=== PATIENT | male | born 1965 | race Caucasian/White ===

== ENCOUNTER 2023-12-22 08:13 | Inpatient (IN) | payer MEDICAID, OTHER ==
[2023-12-22] VITALS (7 sets, daily range): BP systolic 118; BP diastolic 76; PULSE 82–102; RESP 13–26; TEMP 98.2; O2SAT 92–97
[~2023-12-22] VITALS: Ht 188 cm; Wt 201.0 kg
[2023-12-22 09:08] LABS: Basophils # (auto) 0 10 ^3/uL (0-0.2); Basophils % (auto) 0.7 % (0.0-2.0); Eosinophils # (auto) 0.2 10 ^3/uL (0-0.8); Hematocrit 46.4 % (41.0-53.0); Hemoglobin 16.1 g/dL (13.5-17.5); Lymphocytes # (auto) 1.3 10 ^3/uL (0.4-5.4); Lymphocytes % (auto) 29.3 % (10.0-50.0); Mean Corpuscular Hemoglobin 33.8 pg (28.0-32.0); Mean Corpuscular Hgb Conc. 34.7 g/dL (32.0-36.0); Mean Corpuscular Volume 97.3 fL (80.0-100.0); Monocytes # (auto) 0.4 10 ^3/uL (0-1.3); Monocytes % (auto) 8.8 % (0.0-12.0); Neutrophils # (auto) 2.6 10 ^3/uL (1.6-8.6); Neutrophils % (auto) 56.2 % (37.0-80.0); Nucleated Red Blood Cells % 0.1 %; Red Blood Cells 4.77 10^6/uL (4.5-5.90); Red Cell Distribution Width 13.5 % (11.8-14.3); White Blood Cell 4.6 10^3/uL (4.4-10.8)
[2023-12-22] MEDS: ALBUTEROL SULF 2.5 MG/0.5ML(0.5%) NEB SOLN NEB ONE (09:22)
[2023-12-22] MEDS: IPRATROPIUM BROM 0.5 MG/2.5ML INH SOL NEB ONE (09:22)
[2023-12-22 09:33] LABS: Alanine Aminotransferase 80 U/L (7-40); Albumin 4.6 g/dL (3.2-4.8); Alkaline Phosphatase 74 U/L (46-116); Anion Gap 2 (5-15); Aspartate Aminotransferase 75 U/L (13-40); BUN/Creatinine Ratio 11.9 (10.0-20.0); Bilirubin, Total 1.9 mg/dL (0.2-1.0); Blood Urea Nitrogen 15 mg/dL (9-23); Calcium 10.1 mg/dL (8.5-10.1); Carbon Dioxide 35 mmol/L (20-30); Chloride 98 mmol/L (98-107); Glucose 318 mg/dL (74-106); Sodium 135 mmol/L (136-145)
[2023-12-22 09:34] LABS: Total Protein 7.3 g/dL (5.7-8.2)
[2023-12-22] MEDS: SODIUM CHLORIDE 0.9% 1,000 ML IV ONE (09:40)
[2023-12-22] MEDS: ASPirin 81 mg TAB PO ONE (09:40)
[2023-12-22 10:18] LABS: INR 1.08 (0.9-1.15); Partial Thromboplastin Time 25.6 SEC (24.5-34.5); Prothrombin Time 11.4 sec (9.3-11.8)
[2023-12-22] MEDS: LEVOTHYROXINE SODIUM 88 MCG TAB PO ONE (12:46)
[2023-12-22] MEDS: IOHEXOL 350 MG/ML 100ML IJ ONE (12:46)
[2023-12-22] MEDS ORDERED: LOSA-535 PO (12:48)
[2023-12-22] MEDS ORDERED: CLON0.2D6 PO (12:49)
[2023-12-22 12:50] LABS: Urine Bacteria FEW /hpf (None Seen); Urine Blood Negative /uL (Negative); Urine Clarity Turbid (Clear); Urine Color Yellow (Yellow); Urine Hyaline Cast FEW /lpf (0 - 2); Urine Mucus FEW (None Seen); Urine Protein, UAD 1+ (Negative); Urine Specific Gravity 1.021 (1.001-1.035); Urine Sperm PRESENT /hpf (None Seen); Urine Urobilinogen 4 mg/dL (Negative); Urine WBC 12 /hpf (0 - 3)
[2023-12-22] MEDS ORDERED: HYDR25TA5 PO (12:51)
[2023-12-22] MEDS ORDERED: PANT1INJ3 IV (12:51)
[2023-12-22] MEDS ORDERED: METF-370 PO (12:51)
[2023-12-22] MEDS ORDERED: ASPI1TAB20 PO (12:54)
[2023-12-22] MEDS ORDERED: COEN100C15 PO (12:54)
[2023-12-22] MEDS ORDERED: OMEG100062 PO (12:54)
[2023-12-22] MEDS ORDERED: ALBU2TAB11 PO (12:54)
[2023-12-22] MEDS ORDERED: NAP500T PO (12:58)
[2023-12-22] MEDS: MAGNESIUM SULFATE 1GM/100ML 100 ML IV SCH (13:06)
[2023-12-22] MEDS ORDERED: DOCUSATE SOD 100 MG CAP PO PRN (15:00)
[2023-12-22] MEDS ORDERED: ALBUTEROL SULF 2.5 MG/0.5ML(0.5%) NEB SOLN NEB PRN (15:00)
[2023-12-22] MEDS ORDERED: DEXTROSE (50%) 50ML SYRG IV PRN ×4 (15:00→23:45)
[2023-12-22] MEDS ORDERED: IPRATROPIUM BROM 0.5 MG/2.5ML INH SOL NEB PRN (15:00)
[2023-12-22] MEDS: SODIUM CHLORIDE 0.9% 1,000 ML IV SCH (15:00)
[2023-12-22 15:24] LABS: Base Excess 0.4 mmol/L (-2.0-2.0)
[2023-12-22] MEDS: PANTOPRAZOLE 40 MG/10 ML VIAL INJ IV ONE (15:41)
[2023-12-22 15:43] LABS: Free T3 3.74 pg/mL (2.3-4.2)
[2023-12-22 15:44] LABS: Free T4 (Free Thyroxine) 1.2 ng/dL (0.89-1.76)
[2023-12-22] MEDS ORDERED: NITROGLYCERIN 0.4 MG SL TAB SL PRN (17:00)
[2023-12-22] MEDS ORDERED: MORPHINE SULFATE INJ 2 MG/ml SYRG IV PRN (17:00)
[2023-12-22] MEDS: ACCU-CHEK COMFORT CURVE STRIP VI SCH ×2 (17:04→23:47)
[2023-12-22] MEDS: InsuLIN REG 1unit/0.01ml Soln (100units/ml) SC SCH ×3 (17:08→23:48)
[2023-12-22] MEDS: ONDANSETRON HCL 4 MG/2 ML VIAL IV PRN (20:40)
[2023-12-22] MEDS: MORPHINE SULFATE INJ 2 MG/ml SYRG IV PRN (20:40)
[2023-12-22] MEDS: methylPREDNISolone SOD SUCC 125 MG/2 ML VL IV SCH (21:46)
[2023-12-22] MEDS: cloNIDine 0.2 mg/24hr 7DAY PATCH TD SCH (22:10)
[2023-12-22] MEDS: TEMAZEPAM 15 MG CAP PO ONE (23:23)
[2023-12-23] VITALS (15 sets, daily range): BP systolic 115–151; BP diastolic 72–113; PULSE 70–125; RESP 16–39; TEMP 97.7–98.3; O2SAT 88–100
[2023-12-23] MEDS ORDERED: ACCU-CHEK COMFORT CURVE STRIP VI SCH ×2
[2023-12-23] MEDS ORDERED: DEXTROSE (50%) 50ML SYRG IV PRN ×2 (04:45→18:30)
[2023-12-23 06:46] LABS: Alanine Aminotransferase 90 U/L (7-40); Albumin 4.3 g/dL (3.2-4.8); Alkaline Phosphatase 71 U/L (46-116); Anion Gap 8 (5-15); Aspartate Aminotransferase 110 U/L (13-40); BUN/Creatinine Ratio 17.6 (10.0-20.0); Blood Urea Nitrogen 24 mg/dL (9-23); Calcium 9.6 mg/dL (8.5-10.1); Carbon Dioxide 28 mmol/L (20-30); Chloride 99 mmol/L (98-107); Magnesium 1.6 mg/dL (1.6-2.6); Potassium 5.4 mmol/L (3.5-5.1); Sodium 135 mmol/L (136-145)
[2023-12-23 06:47] LABS: Bilirubin, Total 1.5 mg/dL (0.2-1.0); Total Protein 6.7 g/dL (5.7-8.2)
[2023-12-23 06:53] LABS: Basophils # (auto) 0 10 ^3/uL (0-0.2); Eosinophils # (auto) 0 10 ^3/uL (0-0.8); Hemoglobin 15.7 g/dL (13.5-17.5); Lymphocytes # (auto) 0.6 10 ^3/uL (0.4-5.4); Monocytes # (auto) 0.1 10 ^3/uL (0-1.3); Red Cell Distribution Width 13.9 % (11.8-14.3)
[2023-12-23 06:56] LABS: Glucose 428 mg/dL (74-106)
[2023-12-23 06:57] LABS: Basophils % (auto) 0.5 % (0.0-2.0); Eosinophils % (auto) 0.3 % (0.0-7.0); Hematocrit 44.7 % (41.0-53.0); Lymphocytes % (auto) 13.5 % (10.0-50.0); Mean Corpuscular Hemoglobin 35.1 pg (28.0-32.0); Mean Corpuscular Hgb Conc. 35.2 g/dL (32.0-36.0); Mean Corpuscular Volume 99.7 fL (80.0-100.0); Monocytes % (auto) 1.5 % (0.0-12.0); Neutrophils # (auto) 3.6 10 ^3/uL (1.6-8.6); Neutrophils % (auto) 84.2 % (37.0-80.0); Nucleated Red Blood Cells % 0.4 %; Red Blood Cells 4.48 10^6/uL (4.5-5.90); White Blood Cell 4.2 10^3/uL (4.4-10.8)
[2023-12-23] MEDS: InsuLIN REG 1unit/0.01ml Soln (100units/ml) SC SCH (08:42)
[2023-12-23] MEDS: ACCU-CHEK COMFORT CURVE STRIP VI SCH ×2 (08:42→20:11)
[2023-12-23] MEDS: PANTOPRAZOLE 40 MG/10 ML VIAL INJ IV SCH (09:47)
[2023-12-23] MEDS: ASPirin-EC 81 mg tab PO SCH (09:48)
[2023-12-23] MEDS: hydroCHLOROthiazide 25 MG TAB PO SCH (09:49)
[2023-12-23] MEDS: LOSARTAN POTASSIUM 50 MG TAB PO SCH (09:49)
[2023-12-23] MEDS ORDERED: PATIENTS OWN MEDICATION (Losartan Potassium 1 TAB) PO SCH (10:00)
[2023-12-23] MEDS ORDERED: CLON-818 PO (10:22)
[2023-12-23] MEDS: ALBUTEROL SULF 2.5 MG/0.5ML(0.5%) NEB SOLN NEB ONE (10:53)
[2023-12-23 11:08] LABS: Triglycerides 154 mg/dL (< 150)
[2023-12-23 11:09] LABS: LDL Cholesterol 121 mg/dL (< 100)
[2023-12-23 11:10] LABS: HDL Cholesterol 41 mg/dL (40-59)
[2023-12-23 11:11] LABS: Cholesterol 180 mg/dL (< 200)
[2023-12-23] MEDS: KETOROLAC TROMETH 30 MG/ML 1ML VIAL IV ONE (12:25)
[2023-12-23] MEDS: MAGNESIUM SULFATE 1GM/100ML 100 ML IV ONE (12:26)
[2023-12-23] MEDS: FUROSEMIDE 20 MG/2 ML VIAL IV ONE (12:26)
[2023-12-23] MEDS: ACETAMINOPHEN 325 MG TAB PO PRN (12:27)
[2023-12-23] MEDS: INSULIN LANTUS (GLARGINE) 1 /0.01ml (100units/ml) SC SCH (12:44)
[2023-12-23 13:42] LABS: Rapid Influenza A Negative (Negative); Rapid Influenza B Negative (Negative)
[2023-12-23 13:43] LABS: COVID19 ANTIGEN SOFIA FIA NEGATIVE (NEGATIVE)
[2023-12-23] MEDS: InsuLIN REG 1unit/0.01ml Soln (100units/ml) SC ONE (14:13)
[2023-12-23 17:29] LABS: Base Excess 0.5 mmol/L (-2.0-2.0)
[2023-12-23] MEDS: FUROSEMIDE 40 MG/4 ML VIAL IV SCH (17:45)
[2023-12-23] MEDS: INSULIN DRIP 100 UNIT/100ML 100 ML IV SCH (20:20)
[2023-12-23 21:04] LABS: Chloride 99 mmol/L (98-107); Sodium 133 mmol/L (136-145)
[2023-12-23 21:05] LABS: Anion Gap 8 (5-15); Calcium 9.7 mg/dL (8.5-10.1); Carbon Dioxide 26 mmol/L (20-30)
[2023-12-23 21:10] LABS: BUN/Creatinine Ratio 14.9 (10.0-20.0); Blood Urea Nitrogen 22 mg/dL (9-23)
[2023-12-23 21:14] LABS: Glucose 478 mg/dL (74-106)
[2023-12-24] VITALS (12 sets, daily range): BP systolic 123–149; BP diastolic 62–96; PULSE 76–100; RESP 15–23; TEMP 36.5; O2SAT 91–98
[2023-12-24] MEDS ORDERED: DEXTROSE (50%) 50ML SYRG IV PRN (00:15)
[2023-12-24] MEDS: ACCU-CHEK COMFORT CURVE STRIP VI SCH (04:14)
[2023-12-24] MEDS: InsuLIN REG 1unit/0.01ml Soln (100units/ml) SC SCH (04:18)
[2023-12-24 07:24] LABS: Basophils # (auto) 0 10 ^3/uL (0-0.2); Eosinophils # (auto) 0 10 ^3/uL (0-0.8); Lymphocytes # (auto) 1.3 10 ^3/uL (0.4-5.4); Mean Corpuscular Hemoglobin 34.1 pg (28.0-32.0); Monocytes # (auto) 0.4 10 ^3/uL (0-1.3)
[2023-12-24 07:28] LABS: Basophils % (auto) 0.4 % (0.0-2.0); Eosinophils % (auto) 0.6 % (0.0-7.0); Hematocrit 43.3 % (41.0-53.0); Hemoglobin 15.2 g/dL (13.5-17.5); Lymphocytes % (auto) 22.4 % (10.0-50.0); Mean Corpuscular Hgb Conc. 35.1 g/dL (32.0-36.0); Monocytes % (auto) 6.5 % (0.0-12.0); Neutrophils # (auto) 4.1 10 ^3/uL (1.6-8.6); Neutrophils % (auto) 70.1 % (37.0-80.0); Nucleated Red Blood Cells % 0.1 %; Red Blood Cells 4.47 10^6/uL (4.5-5.90); Red Cell Distribution Width 13.5 % (11.8-14.3); White Blood Cell 5.9 10^3/uL (4.4-10.8)
[2023-12-24 07:32] LABS: Alanine Aminotransferase 80 U/L (7-40); Alkaline Phosphatase 64 U/L (46-116); Anion Gap 8 (5-15); BUN/Creatinine Ratio 16.7 (10.0-20.0); Blood Urea Nitrogen 20 mg/dL (9-23); Calcium 9.5 mg/dL (8.5-10.1); Carbon Dioxide 29 mmol/L (20-30); Chloride 100 mmol/L (98-107); Magnesium 1.5 mg/dL (1.6-2.6); Potassium 3.5 mmol/L (3.5-5.1); Sodium 137 mmol/L (136-145)
[2023-12-24 07:33] LABS: Albumin 4.3 g/dL (3.2-4.8); Aspartate Aminotransferase 90 U/L (13-40); Bilirubin, Total 1.4 mg/dL (0.2-1.0); Glucose 281 mg/dL (74-106); Total Protein 6.8 g/dL (5.7-8.2)
[2023-12-24 08:33] LABS: Base Excess 3.3 mmol/L (-2.0-2.0)
[2023-12-24] MEDS: ENOXAPARIN SOD 40 MG/0.4 ML SYRINGE SC SCH (10:00)
[2023-12-24] MEDS: INSULIN LANTUS (GLARGINE) 1 /0.01ml (100units/ml) SC SCH (10:15)
[2023-12-24] MEDS: methylPREDNISolone SOD SUCC 40 MG/ML VL IV SCH (11:03)
[2023-12-24] MEDS: POTASSIUM EFFERVESENT TAB 25 MEQ PO ONE (11:05)
[2023-12-24] MEDS: MAGNESIUM SULFATE 1GM/100ML 100 ML IV ONE (11:07)
[2023-12-24] MEDS ORDERED: PRED20TA2 PO (12:19)
[2023-12-24] MEDS ORDERED: INSLANTI SC (12:19)
[2023-12-24] MEDS ORDERED: BLOO1KIT60 XX (12:21)
[2023-12-24] MEDS ORDERED: METF-370 PO (13:58)
[2023-12-24] MEDS ORDERED: INSU1INJ26 SC (13:58)
[2023-12-25] MEDS ORDERED: MAGNESIUM OXIDE 400 MG TAB PO SCH (10:00)
[2023-12-25] MEDS ORDERED: POTASSIUM CHL 20 Meq TABLET PO SCH (10:00)
== END 2023-12-24 16:01 | disposition home or self-care (01) | DRG 140 ==
LOC: ER 08:13 → TELE 16:53 → TELE-CENTR 16:53 → DOU IN ICU 12-23 17:11
PROVIDERS: ADMIT Internal Medicine Pulmonary Disease; ATTEND Emergency Medicine
DX: J44.1 Chronic obstructive pulmonary disease with (acute) exacerbation (principal); J96.01 Acute respiratory failure with hypoxia; I50.31 Acute diastolic (congestive) heart failure; J45.901 Unspecified asthma with (acute) exacerbation; D69.6 Thrombocytopenia, unspecified; E66.2 Morbid (severe) obesity with alveolar hypoventilation; Z68.43 Body mass index [BMI] 50.0-59.9, adult; I11.0 Hypertensive heart disease with heart failure; E03.9 Hypothyroidism, unspecified; E83.42 Hypomagnesemia; E11.65 Type 2 diabetes mellitus with hyperglycemia; Z20.822 Contact with and (suspected) exposure to COVID-19; R74.01 Elevation of levels of liver transaminase levels; K21.9 Gastro-esophageal reflux disease without esophagitis; E78.5 Hyperlipidemia, unspecified; Z90.49 Acquired absence of other specified parts of digestive tract; Z87.891 Personal history of nicotine dependence; Z56.0 Unemployment, unspecified; Z86.16 Personal history of COVID-19; Z79.84 Long term (current) use of oral hypoglycemic drugs
CPT/HCPCS: 36415; 36600; 71045; 71275; 80048; 80053; 80061; 81001; 82010; 82805; 82962; 83036; 83735; 83880; 84100; 84132; 84439; 84443; 84481; 84484; 85025; 85379; 85610; 85730; 87081; 87426; 87804; 93005; 93306; 93970; 94640; 96361; 96365; 96372; 96375; C9113; G0378; J1815; J1885; J2405

== ENCOUNTER → 2024-02-15 | Outpatient (CLI) | payer MEDICAID ==
[~2024-02-15] MED LIST: ALBU2TAB11 PO; ASPI1TAB20 PO; BLOO1KIT60 XX; CLON-818 PO; COEN100C15 PO; HYDR25TA5 PO; INSU1INJ26 SC; LOSA-535 PO; METF-370 PO; NAP500T PO; OMEG100062 PO; PANT1INJ3 IV; PRED20TA2 PO
== END | disposition home or self-care (01) ==
LOC: RT 14:34
PROVIDERS: ATTEND Internal Medicine Pulmonary Disease
DX: J44.9 Chronic obstructive pulmonary disease, unspecified (principal)
CPT/HCPCS: 94060

== ENCOUNTER 2024-12-10 09:37 | Inpatient (IN) | payer MEDICAID ==
[~2024-12-10] VITALS: Ht 193 cm; Wt 201.0 kg
--- NOTE | 2024-12-10 09:48 | ED.PDOC ---
History of Present Illness HPI Comments 59-year-old male with PMHx HTN, DM, CHF, HLD presents with a chief complaint of chest pain x 40 minutes onset with associated nausea and vomiting x 2 hours. Patient mentions that he woke up this morning and started to have a lot of nausea, then started vomiting a lot. Patient reports that after all the vomiting he started to have chest tightness to his sternal region. Patient denies any SOB, headache, abdominal pain, or diarrhea. Time Seen by MD: 09:40 Reviewed Notes: Medications, Allergies Allergies: Coded Allergies: NO KNOWN ALLERGIES (Unverified , 12/22/23) Home Meds Active Scripts Metformin Hydrochloride (Metformin Hcl) 500 Mg Tab, 1000 MG PO BID for 30 Days, #120 TAB Prov:CHANELL RIGGINS RESIDENT 12/24/23 Insulin Aspart Protamine & Asp (Insulin Aspart Protamine/ (70-30) 100 Unit/ml) 1 Inj Inj, 15 INJ SC BID for 30 Days, INJ Prov:CHANELL RIGGINS RESIDENT 12/24/23 Blood Glucose Monitoring Suppl (D-Care Glucometer Kit/Glu W/Device) 1 Kit Kit, KIT XX DAILY PRN, #1 1 Refill GLUCOMETER KIT Prov:CHANELL RIGGINS RESIDENT 12/24/23 Prednisone (Prednisone) 20 Mg Tab, 40 MG PO DAILY for 4 Days, MG Prov:CHANELL RIGGINS RESIDENT 12/24/23 Reported Medications Clonidine HCl (Clonidine Hydrochloride) 0.1 Mg Tab, 0.2 MG PO TID, TAB 12/23/23 Naproxen (NAPROSYN TABLET) 500 Mg Tb, 1 TAB PO PRN, #60 TAB 1 Refill 12/22/23 Coenzyme Q10 (Coq-10) 100 Mg Cap, 100 MG PO BID, CAP 12/22/23 Emmet-3 Fatty Acids (Fish Oil) 1,000 Mg Cap, 1000 MG PO BID, CAP 12/22/23 Aspirin (Aspir-81) 81 Mg Tab, 1 TAB PO DAILY, #30 TAB 5 Refills 12/22/23 Albuterol Sulfate (Albuterol Sulfate) 2 Mg Tab, 108 MCG PO PRN, MG 12/22/23 Metformin Hydrochloride (Metformin Hcl) 500 Mg Tab, 1 TAB PO BID, #60 TAB 3 Refills 12/22/23 Hctz (Hydrochlorothiazide) 25 Mg Tab, 50 MG PO DAILY, TAB 12/22/23 Pantoprazole Sodium (PANTOPRAZOLE SODIUM) 40 Mg Inj, 40 MG IV DAILY, INJ 12/22/23 Losartan Potassium (Losartan Potassium) 100 Mg Tab, 1 TAB PO DAILY, #30 TAB 5 Refills 12/22/23 Information Source: Patient Mode of Arrival: Ambulatory Severity: Moderate Timing: Hours Duration: Since onset Prehospital treatment: None Past Medical History PAST MEDICAL HISTORY: Asthma, DM, HTN Surgical History: Cholecystectomy Family History Family History: Unknown Social History Smoker: Quit Greater Than 1 Year Alcohol: Occasionally Drugs: Denies Drug Use Lives In: Home Constitutional: denies: chills, diaphoresis, fatigue, fever, malaise, sweats, weakness, others EENTM: denies: blurred vision, double vision, ear bleeding, ear discharge, ear drainage, ear pain, ear ringing, eye pain, eye redness, hearing loss, mouth pain, mouth swelling, nasal discharge, nose bleeding, nose congestion, nose pain, photophobia, tearing, throat pain, throat swelling, voice changes, others Respiratory: denies: cough, hemoptysis, orthopnea, SOB at rest, shortness of breath, SOB with excertion, stridor, wheezing, others Cardiovascular: reports: chest pain; denies: dizzy spells, diaphoresis, Dyspnea on exertion, edema, irregular heart beat, left arm pain, lightheadedness, palpitations, PND, syncope, others Gastrointestinal: reports: nausea, vomiting; denies: abdomen distended, abdominal pain, blood streaked bowels, constipated, diarrhea, dysphagia, difficulty swallowing, hematemesis, melena, poor appetite, poor fluid intake, rectal bleeding, rectal pain, others Genitourinary: denies: burning, dysuria, flank pain, frequency, hematuria, incontinence, penile discharge, penile sore, pain, testicle pain, testicle swelling, urgency, others Neurological: denies: dizziness, fainting, headache, left sided numbness, left sided weakness, numbness, paresthesia, pre-existing deficit, right sided numbness, right sided weakness, seizure, speech problems, tingling, tremors, wea kness, others Musculoskeletal: denies: back pain, gout, joint pain, joint swelling, muscle pain, muscle stiffness, neck pain, others Integumetry: denies: bruises, change in color, change in hair/nails, dryness, l aceration, lesions, lumps, rash, wounds, others Allergic/Immunocompromised: denies: Difficulty Healing, Frequent Infections, Hives, Itching, others Hematologic/Lymphatic: denies: anemia, blood clots, easy bleeding, easy bruising, swollen glands, others Endocrine: denies: excessive hunger, excessive sweating, excessive thirst, excessive urination, flushing, intolerance to cold, intolerance to heat, unexplained weight gain, unexplained weight loss, others Psychiatric: denies: anxiety, bipolar disorder, depression, hopeless, panic disorder, schizophrenia, sleepless, suicidal, others All Other Systems: Reviewed and Negative Physical Exam General Appearance: Moderate Distress, Obese HEENT: Normal ENT Inspection, Pharynx Normal, TMs Normal Neck: Full Range of Motion, Non-Tender, Normal, Normal Inspection Respiratory: Chest Non-Tender, Lungs Clear, No Accessory Muscle Use, No Respiratory Distress, Normal Breath Sounds Cardiovascular: No Edema, No JVD, No Murmur, No Gallop, Normal Peripheral Pulses, Regular Rate/Rhythm Breast Exam: Deferred Gastrointestinal: No Organomegaly, Non Tender, No Pulsatile Mass, Normal Bowel Sounds, Soft Genitalia: Deferred Pelvic: Deferred Rectal: Deferred Extremities: No calf tenderness, Normal capillary refill, Normal range of motion, Non-tender, Pedal edema, Swelling (Bilateral lower extremity) Musculoskeletal : Apperance: Normal Neurologic: Alert, head of housekeeping II-XII nml as Tested, No Motor Deficits, Normal Affect, Normal Mood, No Sensory Deficits Cerebellar Function: NOT DONE Reflexes: NOT DONE Skin: Dry, Normal Color, Warm, Wounds (Bilateral lower extremity) Peripheral Pulses: 3+ Radial (R), 3+ Radial (L) Lymphatic: No Adenopathy Was a procedure done? Was a procedure done?: No EKG EKG : Pulse Rate (adult): 92 [place]: Normal Cardiac Rhythm: NSR Block: None Hypertrophy: LAE ST: Normal Differential Dx Considerations may include: CHF Electrolyte imbalance X-Ray, Labs, Meds, VS Vital Signs Date Time Temp Pulse Resp B/P (MAP) Pulse Ox O2 Delivery O2 Flow Rate FiO2 12/10/24 11:01 60 20 123/70 12/10/24 10:07 62 22 180/80 12/10/24 10:07 92 12/10/24 09:48 92 12/10/24 09:40 98.0 68 28 155/78 (103) 95 98.0 Lab Test 12/10/24 09:48 Range/Units White Blood Count 5.2 4.4-10.8 10^3/uL Red Blood Count 4.60 4.5-5.90 10^6/uL Hemoglobin 15.4 13.5-17.5 g/dL Hematocrit 43.7 41.0-53.0 % Mean Corpuscular Volume 95.0 80.0-100.0 fL Mean Corpuscular Hemoglobin 33.4 H 28.0-32.0 pg Mean Corpuscular Hemoglobin Concent 35.1 32.0-36.0 g/dL Red Cell Distribution Width 14.6 H 11.8-14.3 % Platelet Count 131 L 140-450 10^3/uL Mean Platelet Volume 7.8 6.9-10.8 fL Neutrophils (%) (Auto) 72.0 37.0-80.0 % Lymphocytes (%) (Auto) 17.1 10.0-50.0 % Monocytes (%) (Auto) 7.1 0.0-12.0 % Eosinophils (%) (Auto) 3.3 0.0-7.0 % Basophils (%) (Auto) 0.5 0.0-2.0 % Neutrophils # (Auto) 3.8 1.6-8.6 10 ^3/uL Lymphocytes # (Auto) 0.9 0.4-5.4 10 ^3/uL Monocytes # (Auto) 0.4 0-1.3 10 ^3/uL Eosinophils # (Auto) 0.2 0-0.8 10 ^3/uL Basophils # (Auto) 0 0-0.2 10 ^3/uL Nucleated Red Blood Cells 0.2 % Sodium Level 142 136-145 mmol/L Potassium Level 3.6 3.5-5.1 mmol/L Chloride Level 102 98-107 mmol/L Carbon Dioxide Level 32 H 20-31 mmol/L Anion Gap 8 5-15 Blood Urea Nitrogen 15 9-23 mg/dL Creatinine 1.07 0.700-1.30 mg/dL Glomerular Filtration Rate Calc 79 >90 mL/min BUN/Creatinine Ratio 14.0 10.0-20.0 Serum Glucose 160 H 74-106 mg/dL POC Glucose 165 H 70-106 mg/dl Calcium Level 10.5 H 8.7-10.4 mg/dL Troponin I High Sensitivity 37 </=54 ng/L B-Type Natriuretic Peptide 30.68 0-100 pg/mL Current Medications Medications (Trade) Dose Ordered Sig/Litzy Route Start Time Stop Time Status Last Admin Ondansetron HCl (Zofran) 4 mg ONCE ONCE IV 12/10/24 09:45 12/10/24 09:46 DC 12/10/24 10:07 Morphine Sulfate 4 mg ONCE ONCE IV 12/10/24 09:45 12/10/24 09:46 DC 12/10/24 10:07 Sodium Chloride 1,000 ml @ 1,000 mls/hr Q1H ONCE IV 12/10/24 09:45 12/10/24 10:44 DC 12/10/24 10:07 Morphine Sulfate 4 mg ONCE ONCE IV 12/10/24 11:00 12/10/24 11:01 DC 12/10/24 11:01 Patient alert. Complaining of shortness a breath nausea vomiting. Vitals stable. Answering questions. Morbidly obese. Bilateral lower extremity swelling. Possible CHF. EKG reviewed does not show any acute changes. Was given Lasix. Was given Zofran. Explained to the patient. Continue monitoring. Time of 1ST Reevaluation: 10:10 Reevaluation 1ST: Unchanged Patient Education/Counseling: Diagnosis, Treatment Family Education/Counseling: No Family Present Departure 1 Departure Time of Disposition: 09:53 Impression: Primary Impression: CHF (congestive heart failure) Qualified Codes: I50.41 - Acute combined systolic (congestive) and diastolic (congestive) heart failure Additional Impressions: Chest pain of unknown etiology Morbid obesity with BMI of 60.0-69.9, adult Uncontrolled diabetes mellitus Qualified Codes: E13.65 - Other specified diabetes mellitus with hyperglycemia Disposition: 09 ADMITTED INPATIENT Admit to: Med Surg Condition: Guarded Critical Care Note Critical Care Time?: Yes (90 min-critical care time only) Critical care comment: Was given Lasix continue to monitor Stability Stability form required: No Heart Score Heart Score: Heart Score Response (Comments) Value History Slightly Suspicious 0 EKG Normal 0 Age 45-64 1 Risk Factors >3 or Hx ASHD 2 Troponin Normal limit 0 Total 3 I personally scribed for AMINATA MORENO MD ([email or web address]) on 12/10/24 at 09:48. Electronically submitted by Jairo Casillas ([email or web address]). AMINATA MORENO MD Dec 10, 2024 09:48
[2024-12-10] MEDS: MORPHINE SULFATE 4 MG/ML SYR/VIAL IV ONE ×2 (10:07→11:01)
[2024-12-10] MEDS: ONDANSETRON HCL 4 MG/2 ML VIAL IV ONE ×3 (10:07→20:00)
[2024-12-10] MEDS: SODIUM CHLORIDE 0.9% 1,000 ML IV ONE (10:07)
[2024-12-10 10:08] LABS: Basophils # (auto) 0 10 ^3/uL (0-0.2); Basophils % (auto) 0.5 % (0.0-2.0); Eosinophils # (auto) 0.2 10 ^3/uL (0-0.8); Eosinophils % (auto) 3.3 % (0.0-7.0); Hematocrit 43.7 % (41.0-53.0); Hemoglobin 15.4 g/dL (13.5-17.5); Lymphocytes # (auto) 0.9 10 ^3/uL (0.4-5.4); Lymphocytes % (auto) 17.1 % (10.0-50.0); Mean Corpuscular Hemoglobin 33.4 pg (28.0-32.0); Mean Corpuscular Hgb Conc. 35.1 g/dL (32.0-36.0); Monocytes # (auto) 0.4 10 ^3/uL (0-1.3); Monocytes % (auto) 7.1 % (0.0-12.0); Neutrophils # (auto) 3.8 10 ^3/uL (1.6-8.6); Nucleated Red Blood Cells % 0.2 %; Platelet Count (auto) 131 10^3/uL (140-450); Red Cell Distribution Width 14.6 % (11.8-14.3); White Blood Cell 5.2 10^3/uL (4.4-10.8)
[2024-12-10 10:09] LABS: Chloride 102 mmol/L (98-107); Potassium 3.6 mmol/L (3.5-5.1); Sodium 142 mmol/L (136-145)
[2024-12-10 10:10] LABS: Anion Gap 8 (5-15)
[2024-12-10 10:15] LABS: Blood Urea Nitrogen 15 mg/dL (9-23)
[2024-12-10 10:19] LABS: Calcium 10.5 mg/dL (8.7-10.4); Carbon Dioxide 32 mmol/L (20-31); Glucose 160 mg/dL (74-106)
--- NOTE | 2024-12-10 10:27 | DVH ---
CHEST RADIOGRAPH Indication: sob Technique: Single frontal view of the chest was obtained COMPARISON: FINDINGS: The cardiac silhouette is enlarged. The lungs demonstrate bilateral patchy airspace opacities. The pu lmonary vasculature is prominent. Possible small left pleural effusion. There is no pneumothorax. IMPRESSION: 1. Cardiomegaly with pulmonary vascular congestion and bilateral patchy airspace opacities. 2. Possible small left pleural effusion.
[2024-12-10] MEDS: HYDROmorphone HCL 2 MG/ML VL/or syr IV ONE (12:43)
--- NOTE | 2024-12-10 13:21 | DVHHPRES ---
History of Present Illness Resident Creating Document: ANNIE HUGGINS RESIDENT History of Present Illness Patient is 59-year-old male with past medical history of Chronic obstructive pulmonary disease, congestive heart failure, hypertension, diabetes mellitus on insulin came to the hospital with a chief complaint of acute onset of epigastric pain, intractable nausea and vomiting. Epigastric pain located mainly in center of upper abdomen, associated with 10/10 pain, squeezing in nature, not related to exertion, associated with bilious vomitus, had last bowel movement early in t he morning. Nausea and vomiting is bilious, at least 4-5 episodes since early in the morning, no blood. As per patient he is on Mounjaro 12.5 mg, his dose increased three months ago, as per patient he started having nausea like symptoms for last 10 days, today it worsened enough to cause nausea and vomiting. Patient denied chest pain, fever, chills, dizziness, shortness of breath, any other symptoms. PMH: Hypertension, diabetes mellitus type 2 on insulin, Chronic obstructive pulmonary disease, congestive heart failure Past surgical history: Cholecystectomy Personal history: Smokes cigarettes, greater than 45 pack per year history, denying any other drug use Family history: Not relevant Allergy: None Review of Systems Constitutional: No: Fever, Chills, Sweats, Weakness, Malaise, Other Eyes: No: Pain, Vision change, Conjunctivae inflammation, Eyelid inflammation, Other, Redness ENT: No: Ear pain, Ear discharge, Nose pain, Nose discharge, Nose congestion, Mouth pain, Mouth swelling, Throat pain, Throat swelling, Other Respiratory: No: Cough, Dry, Shortness of breath, SOB with excertion, Wheezing, Hemoptysis, Pleuritic Pain, Sputum, Wheezing, Other Cardiovascular: No: Chest Pain, Palpitations, Orthopnea, Paroxysmal Noc. Dyspnea, Edema, Lt Headedness, Other Gastrointestinal: Nausea, Vomiting, Abdominal Pain Genitourinary: No Dysuria, No Frequency, No Incontinence, No Hematuria, No Retention, No Other Musculoskeletal: No: other, neck pain, shoulder pain, arm pain, back pain, hand pain, leg pain, foot pain Skin: No: Rash, Lesions, Jaundice, Bruising, Other Neurological: No: Weakness, Numbness, Incoordination, Change in speech, Confu zacarias, Seizures, Other Allergies: Coded Allergies: NO KNOWN ALLERGIES (Unverified , 12/22/23) Medications Current Medications Medications Dose Ordered Sig/Litzy Route Start Time Stop Time Status Last Admin Dose Admin Aspirin 81 mg DAILY PO 12/11/24 10:00 UNV Hydrochlorothiazide 50 mg DAILY PO 12/11/24 10:00 UNV Pantoprazole Sodium 40 mg DAILY IV 12/11/24 10:00 UNV Patient Own Medication 15 inj BID SC 12/10/24 22:00 UNV Patient Own Medication 1 tab DAILY PO 12/11/24 10:00 UNV Pantoprazole Sodium 40 mg DAILY IV 12/11/24 10:00 UNV Enoxaparin Sodium 40 mg DAILY SC 12/11/24 10:00 UNV Exam Vital Signs Vital Signs Date Time Temp Pulse Resp B/P (MAP) Pulse Ox O2 Delivery O2 Flow Rate FiO2 12/10/24 12:43 54 14 129/72 12/10/24 12:00 97.8 96 97.8 12/10/24 09:55 Nasal Cannula* 2 28 Exam General Appearance: Cooperative. Well developed. Well nourished. Morbidly obes e, on oxygen via nasal cannula Head Exam: Normal inspection Neck Exam: Normal inspection. Non-tender. Normal alignment Pulmonary/Respiratory: Chest non-tender. Clear bilateral breath sounds, no wheezing or crackles. Cardiovascular/Chest: Regular rate and rhythm. No murmurs. No JVD. Peripheral Pulses: 2+ Radial (R). 2+ Radial (L). 2+ Pedal (R). 2+ Pedal (L) Abdominal Exam: Normal bowel sounds. Soft. Nontender. No hepatosplenomegaly. No masses, Ankle Exam: Negative ankle edema Lower extremities: Negative lower extremity edema, skin changes of chronic venous stasis, presence of pedal pulse, 1+ lower extremity bilateral edema Neuro/Mental Status: A&O x4. Coherent Thoughts/Psych: Normal thought pattern. Appropriate mood and affect. Good judgement and insight Appearance: In no acute distress Skin Exam: Normal inspection. Normal color. Warm. Dry Labs/Xrays Labs Test 12/10/24 09:48 Range/Units White Blood Count 5.2 4.4-10.8 10^3/uL Red Blood Count 4.60 4.5-5.90 10^6/uL Hemoglobin 15.4 13.5-17.5 g/dL Hematocrit 43.7 41.0-53.0 % Mean Corpuscular Volume 95.0 80.0-100.0 fL Mean Corpuscular Hemoglobin 33.4 H 28.0-32.0 pg Mean Corpuscular Hemoglobin Concent 35.1 32.0-36.0 g/dL Red Cell Distribution Width 14.6 H 11.8-14.3 % Platelet Count 131 L 140-450 10^3/uL Mean Platelet Volume 7.8 6.9-10.8 fL Neutrophils (%) (Auto) 72.0 37.0-80.0 % Lymphocytes (%) (Auto) 17.1 10.0-50.0 % Monocytes (%) (Auto) 7.1 0.0-12.0 % Eosinophils (%) (Auto) 3.3 0.0-7.0 % Basophils (%) (Auto) 0.5 0.0-2.0 % Neutrophils # (Auto) 3.8 1.6-8.6 10 ^3/uL Lymphocytes # (Auto) 0.9 0.4-5.4 10 ^3/uL Monocytes # (Auto) 0.4 0-1.3 10 ^3/uL Eosinophils # (Auto) 0.2 0-0.8 10 ^3/uL Basophils # (Auto) 0 0-0.2 10 ^3/uL Nucleated Red Blood Cells 0.2 % Sodium Level 142 136-145 mmol/L Potassium Level 3.6 3.5-5.1 mmol/L Chloride Level 102 98-107 mmol/L Carbon Dioxide Level 32 H 20-31 mmol/L Anion Gap 8 5-15 Blood Urea Nitrogen 15 9-23 mg/dL Creatinine 1.07 0.700-1.30 mg/dL Glomerular Filtration Rate Calc 79 >90 mL/min BUN/Creatinine Ratio 14.0 10.0-20.0 Serum Glucose 160 H 74-106 mg/dL POC Glucose 165 H 70-106 mg/dl Calcium Level 10.5 H 8.7-10.4 mg/dL Troponin I High Sensitivity 37 </=54 ng/L B-Type Natriuretic Peptide 30.68 0-100 pg/mL Assessment/Plan Assessment/Plan Intractable nausea and vomiting ? Related to medication side effect Mounjaro/acute gastritis Epigastric pain likely due to above Mild acute pancreatitis Acute on chronic diastolic CHF Acute hypoxic respiratory failure due to above Pneumonia Gram-positive versus negative Hypertension Diabetes mellitus type 2 on insulin HGB A1c 6.1 % Chronic obstructive pulmonary disease, not exacerbation Ruled out lower extremity DVT Chronic venous stasis Morbid obesity BMI 56.9 kg/m2 Chronic smoker Transaminitis likely related to hepatic cirrhosis Cannabinoid use Plan/recommendation -continue with diuresis 40 mg IV daily, given bilateral pulmonary vascular conge stion, mild shortness of breath, questionable underlying pneumonia, continue with IV antibiotics ceftriaxone and azithromycin. -mild elevated lipase with intractable nausea and vomiting, likely related to possible Mounjaro side effect/acute gastritis. Continue with IV Protonix 40 mg daily. Metoclopramide 10 mg IV q.6 scheduled and p.r.n. ondansetron for intractable nausea and vomiting. -reviewed CT scan of abdomen which showed no acute intracranial abnormality, liver cirrhosis with sequela of portal hypertension. For mild transaminitis, we will go ahead with hepatitis panel, likely hepatic cirrhosis could be related to JACOME -GI consultation -echocardiogram pending, continue with Lasix, continue monitor electrolyte including magnesium. -hypertension: Resume home medication losartan 100 mg p.o. daily, hydrochlorothiazide 50 mg p.o. daily. -diabetes mellitus: Continue home insulin, mild insulin sliding scale -continue aspirin 81 mg p.o. daily. -start atorvastatin 40 mg p.o. daily when patient able to tolerate diet, continue to monitor liver function tests for elevation of liver function. -smoking cessation counseled for 18 minutes. Nicotine patch. Goals of care discussed for 20 minutes, initially patient wanted DNR, then changed code status to full code. Plan discussed with Dr. Rubalcava Plan discussed with: Patient, Other (RN) My Orders Orders - ANNIE HUGGINS Procedure Category Date Status Time Admit ADMIT 12/10/24 Transmitted 13:07 Aspirin Enteric PHA 12/11/24 Logged Coated Tablet 10:00 Hydrochlorothiazide PHA 12/11/24 Logged Tablet (Hydrochlorot 10:00 Pantoprazole PHA 12/11/24 Logged (Protonix) 10:00 (Nf) Insulin Aspart PHA 12/10/24 Logged Protamine & Asp (Ins 22:00 (Nf) Losartan PHA 12/11/24 Logged Potassium 10:00 Pantoprazole PHA 12/10/24 Logged (Protonix) 13:30 Pantoprazole PHA 12/11/24 Logged (Protonix) 10:00 Enoxaparin Sodium PHA 12/11/24 Logged (Lovenox) 10:00 Enoxaparin Sodium PHA 12/10/24 Logged (Lovenox) 13:30 Urinalysis LAB 12/10/24 Logged 13:16 Drug Screen LAB 12/10/24 Logged 13:16 Lipase LAB 12/10/24 In Process 13:16 Aspartate Amino LAB 12/10/24 In Process Transferase 13:16 Alanine LAB 12/10/24 In Process Aminotransferase 13:16 Bilirubin, Total LAB 12/10/24 In Process 13:16 * Gi Dvh Die Holder CONS 12/10/24 Transmitted 13:18 Albuterol Medneb PHA 12/10/24 Verified (Ventolin Medneb) 13:30 Albuterol Medneb PHA 12/10/24 Verified (Ventolin Medneb) 13:30 Ct Ab Pel Wo Con-No CT 12/10/24 Verified Oral Or Iv 13:19 Addendum Addendum Addendum I was physically present for the barnett portions of the service provided to patient by THE RESIDENT. I have reviewed the documentation, discussed the case with resident and agree with the resident's documentation except as noted. Also the patient's clinical case was discussed with the patient's nurse. This medical document was created using an electronic medical record system with computerized dictation system. Although this document has been carefully reviewed, there might still be some phonetic and typographical errors. These areas are purely typographical due to imperfections of the software programs, and do not reflect any compromise in the patient's medical care. Late signature. Date of Service: Dec 10, 2024 Billing Provider: CARIDAD RUBALCAVA MD Common Visit Codes: 05329-[id number] INP/OBS CARE (HIGH) Secondary Visit Codes: 00907-[id number] CHNG SMOKING >10MIN (18 minutes), 19440- ADVANCED CARE PLAN 30 MINUTES (20 minutes) ANNIE HUGGINS RESIDENT Dec 10, 2024 13:21 CARIDAD RUBALCAVA MD Dec 11, 2024 05:12
[2024-12-10] MEDS ORDERED: ALBUTEROL SULF 2.5 MG/0.5ML(0.5%) NEB SOLN NEB ONE (13:30)
[2024-12-10 13:38] LABS: Alanine Aminotransferase 58 U/L (7-40); Aspartate Aminotransferase 53 U/L (13-40); Bilirubin, Total 1.6 mg/dL (0.2-1.0); Lipase 61 U/L (12-53)
[2024-12-10] MEDS: ALBUTEROL SULF 2.5 MG/0.5ML(0.5%) NEB SOLN ONE (13:39)
[2024-12-10 14:13] LABS: Chloride 100 mmol/L (98-107); Potassium 3.5 mmol/L (3.5-5.1); Sodium 141 mmol/L (136-145)
[2024-12-10 14:16] LABS: Anion Gap 14 (5-15); Calcium 9.9 mg/dL (8.7-10.4); Carbon Dioxide 27 mmol/L (20-31)
[2024-12-10 14:21] LABS: BUN/Creatinine Ratio 15.7 (10.0-20.0); Blood Urea Nitrogen 16 mg/dL (9-23)
[2024-12-10 14:22] LABS: Alkaline Phosphatase 59 U/L (46-116); Magnesium 1.8 mg/dL (1.6-2.6); Total Protein 7.4 g/dL (5.7-8.2)
--- NOTE | 2024-12-10 14:23 | DVH ---
Bilateral lower extremity venous duplex Clinical History: dvt Comparison: US BILAT LOWER DVT on DOS: 12/22/23 Technique: Duplex Doppler evaluation of the deep venous systems of both lower extremities from the common femora l veins to the popliteal veins including color Doppler and spectral/pulsed waveform analysis was perf ormed. Findings: RIGHT SIDE: The common femoral vein demonstrates appropriate compressibility and waveform variability. There is compressibility/patency of the great saphenous vein at the proximal thigh. The femoral vein demonstrates appropriate compressibility and waveform variability. The deep femoral vein demonstrates appropriate compressibility and waveform variability. The popliteal vein demonstrates appropriate compressibility and waveform variability. There is normal compressibility at the tibioperoneal trunk. LEFT SIDE: The common femoral vein demonstrates appropriate compressibility and waveform variability. There is compressibility/patency of the great saphenous vein at the proximal thigh. The femoral vein demonstrates appropriate compressibility and waveform variability. The deep femoral vein demonstrates appropriate compressibility and waveform variability. The popliteal vein demonstrates appropriate compressibility and waveform variability. There is normal compressibility at the tibioperoneal trunk. Impression: 1. No right or left femoropopliteal venous thrombosis.
[2024-12-10 14:24] LABS: Albumin 4.9 g/dL (3.2-4.8); Glucose 153 mg/dL (74-106)
[2024-12-10] MEDS: cefTRIAXone 1GM/50ML D5W 50 ML IV ONE (15:00)
[2024-12-10] MEDS: PANTOPRAZOLE 40 MG/10 ML VIAL INJ IV ONE (15:00)
[2024-12-10 15:01] VITALS: BP 129/72; PULSE 54; RESP 16; TEMP 97.8; O2SAT 92
[2024-12-10] MEDS: ENOXAPARIN SOD 60 MG/0.6 ML SYRINGE SC ONE (15:01)
[2024-12-10] MEDS: NICOTINE 14 MG/24HR TOPICAL PATCH TD ONE (15:02)
[2024-12-10] MEDS: FUROSEMIDE 40 MG/4 ML VIAL IV ONE (15:02)
[2024-12-10] MEDS: AZITHROMYCIN 500MG/ 250ML 250 ML IV ONE (15:03)
[2024-12-10] MEDS ORDERED: DEXTROSE (50%) 50ML SYRG IV PRN (15:15)
[2024-12-10 15:23] LABS: Triglycerides 132 mg/dL (< 150)
[2024-12-10 15:24] LABS: LDL Cholesterol 92 mg/dL (< 100)
[2024-12-10 15:25] LABS: HDL Cholesterol 41 mg/dL (40-59)
[2024-12-10 15:26] LABS: Cholesterol 153 mg/dL (< 200)
[2024-12-10 15:26] LABS: Urine Bacteria None Seen /hpf (None Seen)
[2024-12-10 15:42] LABS: Urine Blood Negative /uL (Negative); Urine Clarity Clear (Clear); Urine Color Yellow (Yellow); Urine Hyaline Cast FEW /lpf (0 - 2); Urine Mucus FEW (None Seen); Urine Protein, UAD 1+ (Negative); Urine Specific Gravity 1.031 (1.001-1.035); Urine Squamous Epithelial Cell FEW /hpf (<5); Urine Urobilinogen 2 mg/dL (Negative); Urine WBC 4 /HPF (0-3)
[2024-12-10] MEDS: KETOROLAC TROMETH 30 MG/ML 1ML VIAL IV ONE (15:48)
[2024-12-10] MEDS: METOCLOPRAMIDE HCL 5MG/ml INJ 2ml VIAL IV ONE (15:49)
[2024-12-10 15:53] LABS: Amphetamine Screen, Urine Neg (NEGATIVE); Barbiturate Scree,Urine Neg (NEGATIVE); Benzodiazephine Screen, Urine Neg (NEGATIVE); Cannabinoid Screen, Urine Pos (NEGATIVE); Cocaine Screen, Urine Neg (NEGATIVE); Opiate Scree,Urine Pos (NEGATIVE); Phencyclidine Screen, Urine Neg (NEGATIVE)
--- NOTE | 2024-12-10 15:53 | DVH ---
Exam: CT CT AB PEL WO CON-NO ORAL OR IV History: intractable nause and vomiting Comparison Study: None Technique: Multidetector spiral CT of the abdomen was performed from lung bases to pubic symphysis. I maging was performed without IV contrast. Axial, coronal and sagittal multiplanar reformats were obta ined from the axial data set by the technologist. Radiation Dose : 1. Abdomen/Pelvis: CTDIvol 25.6 mGy, DLP 1766.4 mGy*cm. Findings: Evaluation of solid organs is limited due to lack of intravenous contrast use. Lung Bases: Cardiomegaly. Coronary artery calcifications. Vascular calcifications of the aorta. Depen dent atelectasis. Liver: Mildly nodular hepatic contours may represent early changes of cirrhosis. Gallbladder and Biliary Tree: Gallbladder is surgically absent. Spleen: Splenomegaly. Pancreas: The pancreas is grossly normal in appearance. Adrenal Glands: Unremarkable Kidneys: Kidneys are grossly normal without calculi or hydronephrosis. Bladder: Grossly unremarkable for degree of distention. Bowel: The stomach is grossly normal in appearance. Diverticulosis. The appendix is not visualized; h owever, no secondary findings of acute appendicitis identified. Ascites: Absent Lymphadenopathy: No mesenteric, retroperitoneal or periportal lymphadenopathy. Abdominal Wall and Mesentery: Unremarkable. Vasculature: The visualized abdominal aorta is normal in size and caliber. Evaluation of abdominal a nd pelvic vessels is limited due to lack of intravenous contrast. Pelvic Organs: Unremarkable Musculoskeletal: No aggressive focal bony lesions, acute fractures or dislocation. IMPRESSION: No acute abdominal or pelvic findings. Hepatic cirrhosis and sequelae of portal hypertension. Radiation optimization: All CT scans at this facility use at least one of these dose optimization jhoan hniques: automated exposure control mA and/or kV adjustment per patient size (includes targeted exam s where dose is matched to clinical indication) or iterative reconstruction.
[2024-12-10] MEDS: ACCU-CHEK COMFORT CURVE STRIP VI SCH (17:29)
[2024-12-10] MEDS: InsuLIN REG 1unit/0.01ml Soln (100units/ml) SC SCH (17:53)
[2024-12-10 18:46] VITALS: RESP 18
[2024-12-10 20:00] VITALS: PULSE 51; PULSE 63; RESP 16; O2SAT 93; O2SAT 96
[2024-12-10] MEDS: ACETAMINOPHEN 325 MG TAB PO ONE (20:45)
[2024-12-10 21:00] VITALS: BP 148/73; PULSE 51; RESP 16; TEMP 98.5; O2SAT 93
[2024-12-10] MEDS: METOCLOPRAMIDE HCL 5MG/ml INJ 2ml VIAL IV SCH (21:34)
[2024-12-10] MEDS: MAGNESIUM SULFATE 1GM/100ML 100 ML IV ONE (21:34)
[2024-12-10] MEDS ORDERED: INJECT SC SCH (22:00)
[2024-12-10] MEDS ORDERED: INSULIN ASPART PROTAMINE SC SCH (22:00)
[2024-12-10] MEDS ORDERED: FOLIC ACID 1 MG in D5W 5% 50 ML INJ ONE (22:15)
[2024-12-10] MEDS: ONDANSETRON HCL 4 MG/2 ML VIAL IV PRN (23:11)
[2024-12-10] MEDS: THIAMINE 100mg/ml INJ (200mg/2ml VIAL) IV ONE (23:12)
[2024-12-10] MEDS: LORazepam 2MG/ML-1ML VIAL IV SCH (23:13)
[2024-12-11] VITALS (10 sets, daily range): BP systolic 131–169; BP diastolic 66–93; PULSE 55–82; RESP 17–20; TEMP 95.5–98.2; O2SAT 91–95
--- NOTE | 2024-12-11 00:13 | DVH ---
INDICATION: ascites TECHNIQUE: Sonographic images of all 4 quadrants were obtained to assess for ascites. COMPARISON: None FINDINGS / IMPRESSION: Ultrasound examination of all 4 quadrants demonstrates no evidence of ascites.
[2024-12-11] MEDS: hydroCHLOROthiazide 25 MG TAB PO SCH (04:55)
[2024-12-11] MEDS: LOSARTAN POTASSIUM 50 MG TAB PO SCH (04:56)
[2024-12-11 07:45] LABS: Basophils # (auto) 0 10 ^3/uL (0-0.2); Basophils % (auto) 0.3 % (0.0-2.0); Eosinophils # (auto) 0 10 ^3/uL (0-0.8); Eosinophils % (auto) 0.3 % (0.0-7.0); Hematocrit 41.5 % (41.0-53.0); Hemoglobin 14.6 g/dL (13.5-17.5); Lymphocytes # (auto) 0.8 10 ^3/uL (0.4-5.4); Lymphocytes % (auto) 14.1 % (10.0-50.0); Mean Corpuscular Hemoglobin 33.6 pg (28.0-32.0); Mean Corpuscular Hgb Conc. 35.2 g/dL (32.0-36.0); Mean Corpuscular Volume 95.4 fL (80.0-100.0); Monocytes # (auto) 0.4 10 ^3/uL (0-1.3); Monocytes % (auto) 7.1 % (0.0-12.0); Neutrophils # (auto) 4.6 10 ^3/uL (1.6-8.6); Neutrophils % (auto) 78.2 % (37.0-80.0); Nucleated Red Blood Cells % 0.1 %; Platelet Count (auto) 131 10^3/uL (140-450); Red Blood Cells 4.35 10^6/uL (4.5-5.90); Red Cell Distribution Width 14.7 % (11.8-14.3); White Blood Cell 5.9 10^3/uL (4.4-10.8)
[2024-12-11 08:10] LABS: Albumin 4.6 g/dL (3.2-4.8); Alkaline Phosphatase 56 U/L (46-116); Anion Gap 7 (5-15); BUN/Creatinine Ratio 16.7 (10.0-20.0); Blood Urea Nitrogen 18 mg/dL (9-23); Calcium 10.3 mg/dL (8.7-10.4); Chloride 101 mmol/L (98-107); Potassium 3.8 mmol/L (3.5-5.1); Sodium 142 mmol/L (136-145); Total Protein 7.2 g/dL (5.7-8.2)
[2024-12-11 08:12] LABS: Alanine Aminotransferase 56 U/L (7-40); Aspartate Aminotransferase 73 U/L (13-40); Bilirubin, Total 1.4 mg/dL (0.2-1.0); Carbon Dioxide 34 mmol/L (20-31); Glucose 128 mg/dL (74-106)
[2024-12-11] MEDS ORDERED: PANTOPRAZOLE 40 MG/10 ML VIAL INJ IV SCH (10:00)
[2024-12-11] MEDS ORDERED: PATIENTS OWN MEDICATION (Losartan Potassium 1 TAB) PO SCH (10:00)
[2024-12-11] MEDS ORDERED: AZITHROMYCIN 500MG/ 250ML 250 ML IV SCH (10:00)
[2024-12-11] MEDS: PANTOPRAZOLE 40 MG/10 ML VIAL INJ IV SCH (11:10)
[2024-12-11] MEDS: cefTRIAXone 1GM/50ML D5W 50 ML IV SCH (11:10)
[2024-12-11] MEDS: FUROSEMIDE 40 MG/4 ML VIAL IV SCH (11:11)
[2024-12-11] MEDS: ASPirin-EC 81 mg tab PO SCH (11:11)
[2024-12-11] MEDS: NICOTINE 14 MG/24HR TOPICAL PATCH TD SCH (11:12)
[2024-12-11] MEDS: ENOXAPARIN SOD 40 MG/0.4 ML SYRINGE SC SCH (11:12)
[2024-12-11 11:59] LABS: Hepatitis A Ab IgM Negative; Hepatitis B Core IgM Negative (Negative); Hepatitis B Surface Antigen Negative (Negative); Hepatitis C Antibody Negative (Negative)
--- NOTE | 2024-12-11 12:00 | ECG ---
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
--- NOTE | 2024-12-11 12:53 | DVHPN2 ---
Subjective Seen and examined at bedside. Patient is complaining of epigastric pain. Reviewed imaging patient has liver cirrhosis with some portal hypertension. Unsure if patient ever had an EGD done we will get GI consult. Seems like patient has a history of alcohol abuse in the past. Changes from previous H/P or p: No Changes Eyes: No Pain, No Vision change, No Conjunctivae inflammation, No Eyelid inflammation, No Other, No Redness ENT: No Ear pain, No Ear discharge, No Nose pain, No Nose discharge, No Nose congestion, No Mouth pain, No Mouth swelling, No Throat pain, No Throat swelling, No Other Cardiovascular: No Chest Pain, No Palpitations, No Orthopnea, No Paroxysmal Noc. Dyspnea, No Edema, No Lt Headedness, No Other Respiratory: No Cough, No Dry, No Shortness of breath, No SOB with excertion, No Wheezing, No Hemoptysis, No Pleuritic Pain, No Sputum, No Other Gastrointestinal: Nausea, Vomiting, Abdominal Pain Genitourinary: No Dysuria, No Frequency, No Incontinence, No Hematuria, No Retention, No Other Musculoskeletal: No other, No neck pain, No shoulder pain, No arm pain, No back pain, No hand pain, No leg pain, No foot pain Skin: No Rash, No Lesions, No Jaundice, No Bruising, No Other Objective Vitals Vital Signs Date Time Temp Pulse Resp B/P (MAP) Pulse Ox O2 Delivery O2 Flow Rate FiO2 12/11/24 11:11 154/93 12/11/24 08:30 98.2 78 18 91 98.2 12/10/24 20:00 Nasal Cannula* 2 28 Intake/Output Intake and Output 12/11/24 07:00 Intake Total 600 ml Output Total 1700 ml Balance -1100 ml Intake Oral 500 ml IV Total 100 ml Output Urine Total 1700 ml # Voids 1 Exam Gen: in bed NAD Cvs: N S1/S2, RRR Resp: Creps Abd: Morbidly Obese 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: AAO x 4 Medications Current Medications Medications Dose Ordered Sig/Litzy Route Start Time Stop Time Status Last Admin Dose Admin Aspirin 81 mg DAILY PO 12/11/24 10:00 12/11/24 11:11 81 MG Hydrochlorothiazide 50 mg DAILY PO 12/11/24 10:00 12/11/24 04:55 50 MG Pantoprazole Sodium 40 mg DAILY IV 12/11/24 10:00 12/11/24 11:10 40 MG Patient Own Medication 15 inj BID SC 12/10/24 22:00 Hold Patient Own Medication 1 tab DAILY PO 12/11/24 10:00 UNV Enoxaparin Sodium 40 mg DAILY SC 12/11/24 10:00 Albuterol 2.5 mg Q6HPRN PRN NEB 12/10/24 13:30 Furosemide 40 mg DAILY IV 12/11/24 10:00 12/11/24 11:11 40 MG Ceftriaxone Sodium 50 ml @ 100 mls/hr DAILY@09 IV 12/11/24 09:00 12/11/24 11:10 100 MLS/HR Azithromycin 250 ml @ 125 mls/hr DAILY IV 12/11/24 10:00 Nicotine 1 patch DAILY TD 12/11/24 10:00 Losartan Potassium 100 mg DAILY PO 12/11/24 10:00 12/11/24 04:56 100 MG Metoclopramide HCl 10 mg Q8HR IV 12/10/24 22:00 12/11/24 05:55 10 MG Diagnostic Test (Pha) 1 strip ACHS 12/10/24 17:00 12/11/24 11:33 1 STRIP Insulin Human Regular ACHS SC 12/10/24 17:00 12/11/24 11:33 2 UNITS Dextrose 50 ml UD PRN IV 12/10/24 15:15 Ondansetron HCl 4 mg Q6HPRN PRN IV 12/10/24 18:00 12/10/24 23:11 4 MG Acetaminophen/ Hydrocodone Bitart 1 tab Q6HPRN PRN PO 12/10/24 20:45 Lorazepam 1 mg Q6H IV 12/10/24 22:30 12/11/24 04:55 1 MG Laboratory Results Laboratory Tests 12/11/24 06:32 Chemistry Test 12/11/24 06:32 Albumin 4.6 g/dL (3.2-4.8) Calcium Level 10.3 mg/dL (8.7-10.4) Total Protein 7.2 g/dL (5.7-8.2) Coagulation Test 12/10/24 18:53 D-Dimer, Quantitative 0.54 mg/L FEU (0.0-0.49) H Lipid panel Test 12/10/24 14:57 Cholesterol Level 153 mg/dL (< 200) HDL Cholesterol 41 mg/dL (40-59) Triglycerides Level 132 mg/dL (< 150) LFT Test 12/11/24 06:32 Alanine Aminotransferase (ALT) 56 U/L (7-40) H Alkaline Phosphatase 56 U/L (46-116) Aspartate Amino Transferase (AST) 73 U/L (13-40) H Total Bilirubin 1.4 mg/dL (0.2-1.0) H HgA1c, TSH Test 12/10/24 14:57 Thyroid Stimulating Hormone (TSH) 2.38 uIU/mL (0.55-4.78) Urinalysis Test 12/10/24 15:24 Urine Color Yellow (Yellow) Urine Clarity Clear (Clear) Urine pH 6.0 (5.0-9.0) Urine Specific [place] 1.031 (1.001-1.035) Urine Protein 1+ (Negative) H Urine Ketones Trace (Negative) Urine Blood Negative /uL (Negative) Urine Nitrite Negative (Negative) Urine Bilirubin Negative (Negative) Urine Urobilinogen 2 mg/dL (Negative) H Urine Leukocyte Esterase Negative /uL (Negative) Urine RBC 1 /hpf (0 - 3) Urine Microscopic WBC 4 /HPF (0-3) H Urine Squamous Epithelial Cells Few /hpf (<5) Urine Bacteria None seen /hpf (None Seen) Urine Hyaline Casts Few /lpf (0 - 2) Urine Mucus Few (None Seen) Urine Glucose Normal mg/dL (Normal) Assessment/Plan Assessment/Plan # Abdominal Pain with Liver Cirrhosis and Portal Hypertension - GI Consult for possible EGD # Acute Diastolic CHF - Lasix # H/o Alcohol Abuse - MVT/Thiamine/Folic Acid # DM2 - A1c 6.1 # Morbidly Obese - 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
--- NOTE | 2024-12-11 13:35 | DVHINCON2 ---
GI Consult Consult Note GI consult note Date of Consultation: 12/11/2024 Chief Complaint: Nausea Referring Physician: Olimpia WINSTON H&P: 59-year-old male with past medical history of COPD CHF hypertension and diabetes mellitus presented to the hospital with complains of epigastric pain and nausea vomiting Patient complains of nausea and vomiting for one day, improving now. No nausea or vomiting today Patient also had epigastric abdominal pain which is improving at this time. Denies hematemesis. No melena or red blood in stool No EGD in past. Status post colonoscopy seven years ago was incomplete due to poor prep. Patient has history of elevated LFTs, history of alcohol use which she has quit three years ago per patient Patient treated with Mounjaro for his diabetes, the dose has been increased in the past three months Past Medical History: Hypertension, diabetes mellitus type 2 on insulin, Chronic obstructive pulmonary disease, congestive heart failure Past Surgical History: Cholecystectomy Social History: Positive for smoking cigarettes, heavy alcohol use quit three years ago per patient Family History: Noncontributory Review of Systems: Constitutional: no fever, chill, weight loss HEENT: no eye pain, no hearing loss, no oral lesion, no scleral icterus Heart: no chest pain, no chest pressure Lung: no cough, no dyspnea with exertion Abdomen: see HPI Physical exam: General: NAD, AAOX3 Chest: lung spence clear to auscultation Heart: RRR, no murmur Abdomen: no tenderness to palpation, +BS Labs: Labs Test 12/11/24 11:10 12/11/24 06:32 12/10/24 18:53 12/10/24 15:24 Range/Units POC Glucose 140 H 70-106 mg/dl White Blood Count 5.9 4.4-10.8 10^3/uL Red Blood Count 4.35 L 4.5-5.90 10^6/uL Hemoglobin 14.6 13.5-17.5 g/dL Hematocrit 41.5 41.0-53.0 % Mean Corpuscular Volume 95.4 80.0-100.0 fL Mean Corpuscular Hemoglobin 33.6 H 28.0-32.0 pg Mean Corpuscular Hemoglobin Concent 35.2 32.0-36.0 g/dL Red Cell Distribution Width 14.7 H 11.8-14.3 % Platelet Count 131 L 140-450 10^3/uL Mean Platelet Volume 7.9 6.9-10.8 fL Neutrophils (%) (Auto) 78.2 37.0-80.0 % Lymphocytes (%) (Auto) 14.1 10.0-50.0 % Monocytes (%) (Auto) 7.1 0.0-12.0 % Eosinophils (%) (Auto) 0.3 0.0-7.0 % Basophils (%) (Auto) 0.3 0.0-2.0 % Neutrophils # (Auto) 4.6 1.6-8.6 10 ^3/uL Lymphocytes # (Auto) 0.8 0.4-5.4 10 ^3/uL Monocytes # (Auto) 0.4 0-1.3 10 ^3/uL Eosinophils # (Auto) 0 0-0.8 10 ^3/uL Basophils # (Auto) 0 0-0.2 10 ^3/uL Nucleated Red Blood Cells 0.1 % Sodium Level 142 136-145 mmol/L Potassium Level 3.8 3.5-5.1 mmol/L Chloride Level 101 98-107 mmol/L Carbon Dioxide Level 34 H 20-31 mmol/L Anion Gap 7 5-15 Blood Urea Nitrogen 18 9-23 mg/dL Creatinine 1.08 0.700-1.30 mg/dL Glomerular Filtration Rate Calc 78 >90 mL/min BUN/Creatinine Ratio 16.7 10.0-20.0 Serum Glucose 128 H 74-106 mg/dL Calcium Level 10.3 8.7-10.4 mg/dL Total Bilirubin 1.4 H 0.2-1.0 mg/dL Aspartate Amino Transferase (AST) 73 H 13-40 U/L Alanine Aminotransferase (ALT) 56 H 7-40 U/L Alkaline Phosphatase 56 46-116 U/L Total Protein 7.2 5.7-8.2 g/dL Albumin 4.6 3.2-4.8 g/dL D-Dimer, Quantitative 0.54 H 0.0-0.49 mg/L FEU Urine Color Yellow Yellow Urine Clarity Clear Clear Urine pH 6.0 5.0-9.0 Urine Specific [place] 1.031 1.001-1.035 Urine Protein 1+ H Negative Urine Ketones Trace Negative Urine Blood Negative Negative /uL Urine Nitrite Negative Negative Urine Bilirubin Negative Negative Urine Urobilinogen 2 H Negative mg/dL Urine Leukocyte Esterase Negative Negative /uL Urine RBC 1 0 - 3 /hpf Urine Microscopic WBC 4 H 0-3 /HPF Urine Squamous Epithelial Cells Few <5 /hpf Urine Bacteria None seen None Seen /hpf Urine Hyaline Casts Few 0 - 2 /lpf Urine Mucus Few None Seen Urine Glucose Normal Normal mg/dL Urine Opiates Screen Pos NEGATIVE Urine Fentanyl Screen Neg NEGATIVE Urine Barbiturates Screen Neg NEGATIVE Urine Phencyclidine Screen Neg NEGATIVE Urine Amphetamines Screen Neg NEGATIVE Urine Benzodiazepines Screen Neg NEGATIVE Urine Cocaine Screen Neg NEGATIVE Urine Cannabinoids Screen Pos NEGATIVE Test 12/10/24 14:57 12/10/24 09:48 Range/Units Troponin I High Sensitivity 33 </=54 ng/L Triglycerides Level 132 < 150 mg/dL Cholesterol Level 153 < 200 mg/dL LDL Cholesterol 92 < 100 mg/dL HDL Cholesterol 41 40-59 mg/dL Thyroid Stimulating Hormone (TSH) 2.38 0.55-4.78 uIU/mL Hepatitis A IgM Antibody Negative Hepatitis B Surface Antigen Negative Negative Hepatitis B Core IgM Antibody Negative Negative Hepatitis C Antibody Negative Negative Hemoglobin A1c 6.1 H <5.7 % A1C Magnesium Level 1.8 1.6-2.6 mg/dL B-Type Natriuretic Peptide 30.68 0-100 pg/mL Lipase 61 H 12-53 U/L Imaging: CT abdomen pelvis No acute abdominal or pelvic findings. Hepatic cirrhosis and sequelae of portal hypertension. Abdominal ultrasound FINDINGS / IMPRESSION: Ultrasound examination of all 4 quadrants demonstrates no evidence of ascites. Assessment: Abdominal pain improving now Liver cirrhosis History of alcohol use Morbid obesity Nausea vomiting improving Plan: Discussed with Dr. Laureano Hepatitis panel pending Ultrasound of right upper quadrant to rule out gallstones Clear liquid diet Monitor lab We will continue to follow patient Thank you for this consult Date of Service: Dec 11, 2024 Billing Provider: DAYTON SALOMON Common Visit Codes: CONSULT ONLY Consultation Codes: [id number] CONSULT <60MIN DAYTON SALOMON Dec 11, 2024 13:35
--- NOTE | 2024-12-11 14:43 | DVH ---
INDICATION: elevated LFTs, R/O gallstones TECHNIQUE: Multiple real-time sonographic images were obtained of the right upper quadrant. COMPARISON: US ABDOMEN LIMITED on DOS: 12/10/24 FINDINGS: The liver demonstrates increased echotexture without focal mass lesions. The liver measures 21 cm. The common duct measures 8 mm. Gallbladder is surgically absent. The right kidney measures 14 cm is mildly enlarged. There is no hydronephrosis. The pancreas is not well visualized due to overlying bowel gas. IMPRESSION: Hepatic steatosis and hepatomegaly. Status post cholecystectomy. Mild extrahepatic biliary ductal dilatation which is likely related to post reservoir effect given po st cholecystectomy state.
--- NOTE | 2024-12-11 16:00 | DVHSR ---
APPROVED REPORT EXAM: Two-dimensional and M-mode echocardiogram with Doppler and color Doppler. Blood Pressure: 169/74 mmHg INDICATION CHF RISK FACTORS Obesity: Height: 6'4", Weight: 443 DIMENSIONS LVDd5.7 (3.8-5.7cm)LA (2D)4.3 (1.9-4.0cm)Aortic Root4.1 (2.0-3.7cm) LVDs3.8 (2.5-4.0cm)LA (MM) (1.9-4.0cm)Aortic Cusp Exc2.1 (1.5-2.0cm) EF (%) 60.0 (55-70%)Rt. Atrium4.3 (1.9-4.0cm)Asc. Aorta cm IVSd1.1 (0.7-1.1cm)RV (D) (1.8-2.4cm) PWd1.4 (0.7-1.1cm) Mitral Valve MitralMitral Stenosis E wave1.23m/sMV Mean GR.mmHg A wave0.82m/sMV Peak GR.mmHg E/A ratio1.52D MVAcm2 DECEL [id number] 1/2 Tim[place] Aortic Valve Aortic ValveAortic Stenosis V11.47m/[place]ma Mean GR.8mmHg V22.09m/Z[place]ma Peak GR.17mmHg LVOT Diameter2.4 (1.8-2.4cm)Doppler AVA3.18cm2 Pulmonic Valve V21.31m/s Other Information Technically limited study due to body habitus. Conclusion lvef 65% borderline LVH normal rv function left atrium enlarged moderate RV enlarged
[2024-12-11] MEDS: ALBUTEROL SULF 2.5 MG/0.5ML(0.5%) NEB SOLN NEB PRN (16:37)
[2024-12-11] MEDS: HYDROcodone-ACET 5/325MG TAB PO PRN (19:43)
[2024-12-11] MEDS: FOLIC ACID 1 MG in D5W 5% 50 ML INJ ONE (21:51)
[2024-12-12] VITALS (7 sets, daily range): BP systolic 129–145; BP diastolic 52–88; PULSE 54–72; RESP 19–22; TEMP 97.8–99.1; O2SAT 90–96
--- NOTE | 2024-12-12 08:06 | ECG ---
[facility] Test Date: 2024-12-10 Test Time: 22:33:28 Pat Name: CAROLINE REYNOLDS Department: Respiratoy Room: [address] [place] [address] 8 Gender: M Dock Guard: PENG : 1965 Requested By: JOSEFINA GIL Order Number: [id number] Reading MD: Maxi Hylton Measurements Intervals [place] Rate: 67 P: 55 WA: 172 QRS: 29 QRSD: 96 T: 4 QT: 428 QTc: 452 Interpretive Statements Sinus rhythm Ventricular premature complex Low voltage, precordial leads Electronically Signed On 12-13-2024 14:39:59 PDT by Maxi Hylton Please click the below link to view image of tracing.
[2024-12-12 10:54] LABS: Albumin 4.6 g/dL (3.2-4.8); Alkaline Phosphatase 53 U/L (46-116); Anion Gap 7 (5-15); BUN/Creatinine Ratio 12.8 (10.0-20.0); Blood Urea Nitrogen 14 mg/dL (9-23); Calcium 9.7 mg/dL (8.7-10.4); Potassium 3.7 mmol/L (3.5-5.1); Sodium 138 mmol/L (136-145); Total Protein 7.2 g/dL (5.7-8.2)
[2024-12-12 10:55] LABS: Alanine Aminotransferase 69 U/L (7-40); Aspartate Aminotransferase 97 U/L (13-40); Bilirubin, Total 1.8 mg/dL (0.2-1.0); Carbon Dioxide 35 mmol/L (20-31); Chloride 96 mmol/L (98-107); Glucose 144 mg/dL (74-106)
[2024-12-12 11:03] LABS: INR 0.94 (0.9-1.15); Partial Thromboplastin Time 25.9 SEC (24.5-34.5)
[2024-12-12] MEDS ORDERED: PANT40TA2 PO (13:21)
[2024-12-12] MEDS ORDERED: ZOFR4T PO (13:21)
[2024-12-12] MEDS ORDERED: SUCR1SUS26 PO (13:21)
--- NOTE | 2024-12-12 13:33 | DVHDS2 ---
Discharge Summary Date of Admission Dec 10, 2024 at 13:07 Date of Discharge: Dec 12, 2024 Labs/Diagnostic Data: Laboratory Results Test 12/12/24 11:29 12/12/24 10:21 12/11/24 06:32 12/10/24 18:53 POC Glucose 148 mg/dl (70-106) Prothrombin Time 10.0 sec (9.3-11.8) Prothrombin Time INR 0.94 (0.9-1.15) Activated Partial Thromboplast Time 25.9 SEC (24.5-34.5) Sodium Level 138 mmol/L (136-145) Potassium Level 3.7 mmol/L (3.5-5.1) Chloride Level 96 mmol/L (98-107) Carbon Dioxide Level 35 mmol/L (20-31) Anion Gap 7 (5-15) Blood Urea Nitrogen 14 mg/dL (9-23) Creatinine 1.09 mg/dL (0.700-1.30) Glomerular Filtration Rate Calc 77 mL/min (>90) BUN/Creatinine Ratio 12.8 (10.0-20.0) Serum Glucose 144 mg/dL (74-106) Calcium Level 9.7 mg/dL (8.7-10.4) Total Bilirubin 1.8 mg/dL (0.2-1.0) Aspartate Amino Transferase (AST) 97 U/L (13-40) Alanine Aminotransferase (ALT) 69 U/L (7-40) Alkaline Phosphatase 53 U/L (46-116) Total Protein 7.2 g/dL (5.7-8.2) Albumin 4.6 g/dL (3.2-4.8) White Blood Count 5.9 10^3/uL (4.4-10.8) Red Blood Count 4.35 10^6/uL (4.5-5.90) Hemoglobin 14.6 g/dL (13.5-17.5) Hematocrit 41.5 % (41.0-53.0) Mean Corpuscular Volume 95.4 fL (80.0-100.0) Mean Corpuscular Hemoglobin 33.6 pg (28.0-32.0) Mean Corpuscular Hemoglobin Concent 35.2 g/dL (32.0-36.0) Red Cell Distribution Width 14.7 % (11.8-14.3) Platelet Count 131 10^3/uL (140-450) Mean Platelet Volume 7.9 fL (6.9-10.8) Neutrophils (%) (Auto) 78.2 % (37.0-80.0) Lymphocytes (%) (Auto) 14.1 % (10.0-50.0) Monocytes (%) (Auto) 7.1 % (0.0-12.0) Eosinophils (%) (Auto) 0.3 % (0.0-7.0) Basophils (%) (Auto) 0.3 % (0.0-2.0) Neutrophils # (Auto) 4.6 10 ^3/uL (1.6-8.6) Lymphocytes # (Auto) 0.8 10 ^3/uL (0.4-5.4) Monocytes # (Auto) 0.4 10 ^3/uL (0-1.3) Eosinophils # (Auto) 0 10 ^3/uL (0-0.8) Basophils # (Auto) 0 10 ^3/uL (0-0.2) Nucleated Red Blood Cells 0.1 % D-Dimer, Quantitative 0.54 mg/L FEU (0.0-0.49) Test 12/10/24 15:24 12/10/24 14:57 12/10/24 09:48 Urine Color Yellow (Yellow) Urine Clarity Clear (Clear) Urine pH 6.0 (5.0-9.0) Urine Specific [place] 1.031 (1.001-1.035) Urine Protein 1+ (Negative) Urine Ketones Trace (Negative) Urine Blood Negative /uL (Negative) Urine Nitrite Negative (Negative) Urine Bilirubin Negative (Negative) Urine Urobilinogen 2 mg/dL (Negative) Urine Leukocyte Esterase Negative /uL (Negative) Urine RBC 1 /hpf (0 - 3) Urine Microscopic WBC 4 /HPF (0-3) Urine Squamous Epithelial Cells Few /hpf (<5) Urine Bacteria None seen /hpf (None Seen) Urine Hyaline Casts Few /lpf (0 - 2) Urine Mucus Few (None Seen) Urine Glucose Normal mg/dL (Normal) Urine Opiates Screen Pos (NEGATIVE) Urine Fentanyl Screen Neg (NEGATIVE) Urine Barbiturates Screen Neg (NEGATIVE) Urine Phencyclidine Screen Neg (NEGATIVE) Urine Amphetamines Screen Neg (NEGATIVE) Urine Benzodiazepines Screen Neg (NEGATIVE) Urine Cocaine Screen Neg (NEGATIVE) Urine Cannabinoids Screen Pos (NEGATIVE) Troponin I High Sensitivity 33 ng/L (</=54) Triglycerides Level 132 mg/dL (< 150) Cholesterol Level 153 mg/dL (< 200) LDL Cholesterol 92 mg/dL (< 100) HDL Cholesterol 41 mg/dL (40-59) Thyroid Stimulating Hormone (TSH) 2.38 uIU/mL (0.55-4.78) Hepatitis A IgM Antibody Negative Hepatitis B Surface Antigen Negative (Negative) Hepatitis B Core IgM Antibody Negative (Negative) Hepatitis C Antibody Negative (Negative) Hemoglobin A1c 6.1 % A1C (<5.7) Magnesium Level 1.8 mg/dL (1.6-2.6) B-Type Natriuretic Peptide 30.68 pg/mL (0-100) Lipase 61 U/L (12-53) Other Laboratory Tests 12/12/24 10:21 12/11/24 06:32 Brief Hx & Hospital Course: Patient is 59-year-old male with past medical history of Chronic obstructive pulmonary disease, congestive heart failure, hypertension, diabetes mellitus on insulin came to the hospital with a chief complaint of acute onset of epigastric pain, intractable nausea and vomiting. Epigastric pain located mainly in center of upper abdomen, associated with 10/10 pain, squeezing in nature, not related to exertion, associated with bilious vomitus, had last bowel movement early in the morning. Nausea and vomiting is bilious, at least 4-5 episodes since early in the morning, no blood. As per patient he is on Mounjaro 12.5 mg, his dose increased three months ago, as per patient he started having nausea like symptoms for last 10 days, today it worsened enough to cause nausea and vomiting. Patient also has alcoholic liver cirrhosis. Patient advised to see [facility] Hepatology as outpatient. Patient will be discharged home. Operations or Procedures EXAM: Two-dimensional and M-mode echocardiogram with Doppler and color Doppler. Blood Pressure: 169/74 mmHg INDICATION CHF RISK FACTORS Obesity: Height: 6'4", Weight: 443 DIMENSIONS LVDd 5.7 (3.8-5.7cm) LA (2D) 4.3 (1.9-4.0cm) Aortic Root 4.1 (2.0- 3.7cm) LVDs 3.8 (2.5-4.0cm) LA (MM) (1.9-4.0cm) Aortic Cusp Exc 2.1 (1.5- 2.0cm) EF (%) 60.0 (55-70%) Rt. Atrium 4.3 (1.9-4.0cm) Asc. Aorta cm IVSd 1.1 (0.7-1.1cm) RV (D) (1.8-2.4cm) PWd 1.4 (0.7-1.1cm) Mitral Valve Mitral Mitral Stenosis E wave 1.23m/s MV Mean GR. mmHg A wave 0.82m/s MV Peak GR. mmHg E/A ratio 1.5 2D MVA cm2 DECEL Time 229ms PRESS 1/2 Time ms Aortic Valve Aortic Valve Aortic Stenosis V1 1.47m/s AO Mean GR. 8mmHg V2 2.09m/s AO Peak GR. 17mmHg LVOT Diameter 2.4 (1.8-2.4cm) Doppler CHELITA 3.18cm2 Pulmonic Valve V2 1.31m/s Other Information Technically limited study due to body habitus. Conclusion lvef 65% borderline LVH normal rv function left atrium enlarged moderate RV enlarged INDICATION: elevated LFTs, R/O gallstones TECHNIQUE: Multiple real-time sonographic images were obtained of the right upper quadrant. COMPARISON: US ABDOMEN LIMITED on DOS: 12/10/24 FINDINGS: The liver demonstrates increased echotexture without focal mass lesions. The liver measures 21 cm. The common duct measures 8 mm. Gallbladder is surgically absent. The right kidney measures 14 cm is mildly enlarged. There is no hydronephrosis. The pancreas is not well visualized due to overlying bowel gas. IMPRESSION: Hepatic steatosis and hepatomegaly. Status post cholecystectomy. Mild extrahepatic biliary ductal dilatation which is likely related to post reservoir effect given post cholecystectomy state. 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 Lisa Medications: See Med Recc Discharge Statement: "Patient was advised to return to the ER or call 911 if any headaches, dizziness, shortness of breath, chest pain, abdominal pain, bleeding, fevers, or worsening of medical condition. Patient was counseled about treatment plan, medications, possible side effects, patientverbalized understanding. All questions were answered to the best of my ability. This discharge took greater then 30 minutes in planning, reviewing documentation, counseling the patient, and discussing with other team members." ASSESSMENT ASSESSMENT Assessment Date of Service: Dec 12, 2024 Billing Provider: EDNA CALIX MD Common Visit Codes: [id number] DISCH DAY >30min EDNA CALIX MD Dec 12, 2024 13:33
--- NOTE | 2024-12-12 23:11 | DVHPN2 ---
Progress Note - Dictate Date Seen: Dec 12, 2024 (Time of visit 4 p.m.) Medical Necessity Reason Pt with a Central, PICC or Fol: No Subjective Patient seen at bedside, he is feeling better There was no nausea vomiting or abdominal pain vital signs Vital Sign Date Time Temp Pulse Resp B/P (MAP) Pulse Ox O2 Delivery O2 Flow Rate FiO2 12/12/24 13:33 92 Nasal Cannula 4.0 12/12/24 13:33 36 12/12/24 13:00 98.3 54 20 129/58 (81) 98.3 Total Intake and Output 12/11/24 12/11/24 12/12/24 15:00 23:00 07:00 Intake Total 1250.2 ml 500 ml Output Total 1500 ml 200 ml Balance -249.8 ml 300 ml medications Current Medications Medications Dose Ordered Sig/Litzy Route Start Time Stop Time Status Last Admin Dose Admin Patient Own Medication 1 tab DAILY PO 12/11/24 10:00 UNV objective General: NAD, AAOX3 Chest: lung spence clear to auscultation Heart: RRR, no murmur Abdomen: no tenderness to palpation, +BS;obese laboratory and microbiology Laboratory Tests 12/12/24 10:21 12/11/24 06:32 Test 12/12/24 10:21 Range/Units Serum Glucose 144 H 74-106 mg/dL RUQ USG IMPRESSION: Hepatic steatosis and hepatomegaly. Status post cholecystectomy. Mild extrahepatic biliary ductal dilatation which is likely related to post reservoir effect given post cholecystectomy state. Problems(with codes): (1) Chest pain of unknown etiology (2) Morbid obesity with BMI of 60.0-69.9, adult (3) Uncontrolled diabetes mellitus (4) CHF (congestive heart failure) (5) Elevated liver enzymes Prognosis Assessment plan Discharge planning is in progress Patient was advised to decrease his Mounjaro to 7.5 or 10 mg weekly, patient has not lost much weight with a on gyro Low-fat diet for hepatic steatosis Discontinue alcohol Outpatient follow up with GI Services for elective panendoscopy Plan discussed with: Patient, Other (Nurse) CONNOR WALLER MD Dec 12, 2024 23:11
== END 2024-12-12 17:20 | disposition home or self-care (01) | DRG 280 ==
LOC: ER 09:37 → OVERFLOW 13:07 → TELE-EAST 18:32 → EAST 12-11 19:54
PROVIDERS: ADMIT Internal Medicine; ATTEND Internal Medicine
DX: K70.30 Alcoholic cirrhosis of liver without ascites (principal); J96.01 Acute respiratory failure with hypoxia; I50.31 Acute diastolic (congestive) heart failure; K76.6 Portal hypertension; Z68.44 Body mass index [BMI] 60.0-69.9, adult; I11.0 Hypertensive heart disease with heart failure; F12.99 Cannabis use, unspecified with unspecified cannabis-induced disorder; E11.65 Type 2 diabetes mellitus with hyperglycemia; E78.5 Hyperlipidemia, unspecified; E66.01 Morbid (severe) obesity due to excess calories; R74.01 Elevation of levels of liver transaminase levels; K76.0 Fatty (change of) liver, not elsewhere classified; Z87.891 Personal history of nicotine dependence; Z79.4 Long term (current) use of insulin; Z90.49 Acquired absence of other specified parts of digestive tract; Z79.899 Other long term (current) drug therapy
CPT/HCPCS: 36415; 71045; 74176; 76705; 80048; 80053; 80061; 80074; 80307; 81001; 82105; 82962; 83036; 83690; 83735; 83880; 84443; 84484; 85025; 85379; 85610; 85730; 93005; 93306; 93970; 94640; 96374; 96375; 96376; 99291; 99292; G0378; J1815; J1885; J2405; J2470; J7060